=== PATIENT | female | born 1970 | race Two or more races ===

== ENCOUNTER 2019-10-10 02:30 | Emergency (ER) | payer MEDICAID, OTHER | END 2019-10-10 02:38 | disposition left against medical advice (07) | LOC: ER 02:30 → EDBD 02:30 → ER 02:38 | DX: R10.9 Unspecified abdominal pain (principal); R11.2 Nausea with vomiting, unspecified; Z53.21 Procedure and treatment not carried out due to patient leaving prior to being seen by health care provider ==

== ENCOUNTER 2019-10-10 02:34 | Emergency (ER) | payer MEDICAID, OTHER ==
[~2019-10-10] VITALS: Ht 152.4 cm; Wt 99.8 kg
[2019-10-10 06:30] VITALS: BP 144/86
[2019-10-10] MEDS ORDERED: FOLIC ACID 1 MG, MULTIPLE VITAMIN 10 ML, MAGNESIUM SULF SDV 50% 8 MEQ, THIAMINE INJ 100... INJ SCH ×5 (12:00)
== END 2019-10-10 07:50 | disposition home or self-care (01) ==
LOC: ER 02:34 → EDBD 02:34 → ER 07:50
DX: F10.129 Alcohol abuse with intoxication, unspecified (principal); F41.9 Anxiety disorder, unspecified; E11.9 Type 2 diabetes mellitus without complications; I10 Essential (primary) hypertension; Y90.9 Presence of alcohol in blood, level not specified